=== PATIENT | female | born 1990 | race Caucasian/White ===

== ENCOUNTER 2020-04-20 05:49 | Emergency (ER) | payer OTHER ==
[2020-04-20 07:14] LABS: HEMOGLOBIN 14.7 gm/dl (12.3-15.3); RED BLOOD COUNT 4.88 M/UL (4.00-5.10); WHITE BLOOD COUNT 5.2 K/UL (4.5-11.0)
[2020-04-20 07:31] LABS: BUN/CREATININE RATIO 15 (0-10)
[2020-04-20] MEDS ORDERED: [UNRECOGNIZED DRUG - REMARK] (09:55)
== END 2020-04-20 10:25 | disposition home or self-care (01) ==
LOC: ER1 05:49
PROVIDERS: Family Medicine
DX: K92.1 Melena (principal); R19.7 Diarrhea, unspecified; Z90.49 Acquired absence of other specified parts of digestive tract; Z88.2 Allergy status to sulfonamides
CPT/HCPCS: 80053; 81001; 82270; 83540; 83550; 83690; 84703; 85025; 99284

== ENCOUNTER → 2020-11-23 | Outpatient (CLI) | payer SELFPAY ==
[~2020-11-23] MED LIST: [UNRECOGNIZED DRUG - REMARK]
== END ==
LOC: KOH-I 08:44
DX: R10.11 Right upper quadrant pain (principal)
CPT/HCPCS: 76856